=== PATIENT | female | born 1940 | race Caucasian/White ===

== ENCOUNTER 2018-06-22 14:19 | Inpatient (IN) | payer MEDICARE, MEDICAID ==
[~2018-06-22] VITALS: Ht 154.9 cm; Wt 88.0 kg
[~2018-06-22 14:19] MED LIST: AMLO10TA80 PO; ASCO500C15 PO; ASPI-986 PO; ATOR10TA PO; BLOO-1113; DOCU-138 PO; DONE10TA11 PO; ENOX100D3 SQ; INSU100C6 SUBCUT; LEVVL SQ; LISI-652 PO; MEMA10TA2 PO; OMEP20CA10 PO; ZINC220C6 PO; ZOLP5TAB2 PO
[2018-06-22] MEDS ORDERED: ONDANSETRON HCL 4MG/2ML INJ IV STA (15:41)
[2018-06-22] MEDS ORDERED: SODIUM CHLORIDE 0.9% 1,000 ML IV ONE ×2 (15:41→17:45)
[2018-06-22 15:58] LABS: BASOPHILS % 1.3 % (0.0-2.0); EOSINOPHILS % 1.3 % (0.0-5.0); HEMATOCRIT. 44.5 % (36.0-48.0); HEMOGLOBIN. 14.4 g/dL (12.0-16.0); LYMPHOCYTES % 20.3 % (20.0-50.0); MEAN CORPUSCULAR HEMOGLOBIN 29.3 pg (28.0-32.0); MEAN CORPUSCULAR VOLUME 90.8 fL (81.0-99.0); NEUTROPHILS % 69.1 % (40.0-76.0); PLATELET 322 x1000/uL (130-400); RED CELL DISTRIBUTION WIDTH 15.1 % (11.6-14.6)
[2018-06-22 16:01] LABS: CHLORIDE 100 mEq/L (98-107)
[2018-06-22 16:02] LABS: INR 1.1; PROTHROMBIN TIME 11.4 sec (9.6-11.0)
[2018-06-22 16:33] LABS: KETONES URINE TRACE (NEGATIVE); LEUKOCYTE ESTERASE URINE 1+ (NEGATIVE); NITRITE URINE NEGATIVE (NEGATIVE); OCCULT BLOOD URINE 3+ (NEGATIVE); PH URINE 5.5 (4.5-8.0); PROTEIN URINE 4+ (NEGATIVE)
[2018-06-22 16:39] LABS: CLARITY URINE CLOUDY (CLEAR); COLOR URINE DARK YELLOW (YELLOW)
[2018-06-22] MEDS ORDERED: CEFTRIAXONE 1 G PREMIX 50 ML IV NR (17:45)
[2018-06-22] MEDS ORDERED: INSULIN REGULAR (HUMULIN R) UD 100 UNITS/ML SYR SUBCUT ONE (17:45)
[2018-06-22] MEDS ORDERED: INSULIN REGULAR (HUMULIN R) 300UNITS/3ML SUBCUT NR (18:00)
[2018-06-22] MEDS ORDERED: ACETAMINOPHEN 325MG TABLET PO PRN (18:30)
[2018-06-22] MEDS ORDERED: MAGNESIUM/ALUMINUM HYDROXIDE/SIMETHICONE 30ML UDC PO PRN (18:30)
[2018-06-22] MEDS ORDERED: ONDANSETRON HCL 4MG/2ML INJ IV PRN (18:30)
[2018-06-22] MEDS ORDERED: DOCUSATE SODIUM 100MG CAPSULE PO PRN (18:30)
[2018-06-22] MEDS: CLONIDINE 0.1MG TABLET PO PRN (20:20)
[2018-06-22 23:30] VITALS: BP 183/82
[2018-06-23] VITALS (8 sets, daily range): BP systolic 106–236; BP diastolic 57–93
[2018-06-23] MEDS ORDERED: DEXTROSE 50% WATER 50ML SYRINGE IV PRN (04:00)
[2018-06-23] MEDS ORDERED: SODIUM CHLORIDE 0.9% 1,000 ML IV SCH (04:00)
[2018-06-23] MEDS: CLONIDINE 0.1MG TABLET PO PRN ×2 (04:34→15:54)
[2018-06-23 06:24] LABS: BASOPHILS % 1.2 % (0.0-2.0); EOSINOPHILS % 3.1 % (0.0-5.0); HEMATOCRIT. 42.7 % (36.0-48.0); HEMOGLOBIN. 13.7 g/dL (12.0-16.0); LYMPHOCYTES % 21.7 % (20.0-50.0); MEAN CORPUSCULAR HEMOGLOBIN 29.1 pg (28.0-32.0); MEAN CORPUSCULAR VOLUME 90.7 fL (81.0-99.0); MEAN PLATELET VOLUME 8.8 fl (7.4-10.4); MONOCYTES % 10.8 % (2.0-8.0); NEUTROPHILS % 63.2 % (40.0-76.0); PLATELET 301 x1000/uL (130-400); RED BLOOD CELL COUNT 4.71 mill/uL (4.2-5.4); RED CELL DISTRIBUTION WIDTH 14.7 % (11.6-14.6)
[2018-06-23] MEDS: BLOOD SUGAR DIAGNOSTIC STRIP TEST SCH ×4 (06:43→21:04)
[2018-06-23] MEDS: INSULIN LISPRO 100 UNITS/ML SUBCUT SCH ×4 (06:47→21:02)
[2018-06-23 06:54] LABS: CHLORIDE 100 mEq/L (98-107)
[2018-06-23] MEDS ORDERED: LEVOFLOXACIN 500MG PREMIX 100 ML IV NR (08:00)
[2018-06-23] MEDS: AMLODIPINE 10MG TABLET PO SCH (09:41)
[2018-06-23] MEDS: ENOXAPARIN 30MG/0.3ML SYR SUBCUT SCH ×2 (09:41→21:03)
[2018-06-23] MEDS: DONEPEZIL HCL 10MG TABLET PO SCH (10:38)
[2018-06-23] MEDS: LISINOPRIL 20MG TABLET PO SCH ×2 (10:38→21:03)
[2018-06-23] MEDS: SODIUM CHLORIDE 0.45% 1,000 ML IV SCH (11:22)
[2018-06-23] MEDS ORDERED: HUM100IN SQ (17:03)
[2018-06-23] MEDS: INSULIN GLARGINE UD 100 UNITS/ML SYR SUBCUT SCH (21:02)
[2018-06-23] MEDS: ATORVASTATIN CALCIUM 10MG TABLET PO SCH (21:03)
[2018-06-23] MEDS: MEMANTINE HCL 10MG TABLET PO SCH (21:03)
[2018-06-23] MEDS: HYDROCODONE/ACETAMINOPHEN 5/325MG TABLET PO PRN (21:04)
[2018-06-24] MEDS: SODIUM CHLORIDE 0.45% 1,000 ML IV SCH (00:25)
[2018-06-24] MEDS: ZOLPIDEM TARTRATE 5MG TABLET PO PRN ×2 (00:25→21:04)
[2018-06-24 04:00] VITALS: BP 145/59
[2018-06-24] MEDS: BLOOD SUGAR DIAGNOSTIC STRIP TEST SCH ×4 (07:02→20:51)
[2018-06-24 08:00] VITALS: BP 178/71
[2018-06-24] MEDS: LISINOPRIL 20MG TABLET PO SCH ×2 (10:06→21:04)
[2018-06-24] MEDS: DONEPEZIL HCL 10MG TABLET PO SCH (10:06)
[2018-06-24] MEDS: AMLODIPINE 10MG TABLET PO SCH (10:07)
[2018-06-24] MEDS: ENOXAPARIN 30MG/0.3ML SYR SUBCUT SCH (10:07)
[2018-06-24] MEDS: LEVOFLOXACIN 250MG PREMIX 50 ML IV SCH (10:08)
[2018-06-24] MEDS: MEMANTINE HCL 10MG TABLET PO SCH ×2 (10:08→21:04)
[2018-06-24] MEDS: INSULIN LISPRO 100 UNITS/ML SUBCUT SCH ×4 (10:21→21:05)
[2018-06-24] MEDS: HYDROCODONE/ACETAMINOPHEN 5/325MG TABLET PO PRN ×3 (10:22→23:39)
[2018-06-24 11:40] VITALS: BP 123/53
[2018-06-24 15:35] VITALS: BP 162/54
[2018-06-24 20:24] VITALS: BP 163/71
[2018-06-24] MEDS: ATORVASTATIN CALCIUM 10MG TABLET PO SCH (21:04)
[2018-06-24] MEDS: INSULIN GLARGINE UD 100 UNITS/ML SYR SUBCUT SCH (21:06)
[2018-06-25] VITALS: BP 155/47
[2018-06-25 04:00] VITALS: BP 161/58
[2018-06-25] MEDS: HYDROCODONE/ACETAMINOPHEN 5/325MG TABLET PO PRN (04:39)
[2018-06-25] MEDS: CLONIDINE 0.1MG TABLET PO PRN ×2 (04:39→16:33)
[2018-06-25] MEDS: BLOOD SUGAR DIAGNOSTIC STRIP TEST SCH ×2 (06:33→12:33)
[2018-06-25 08:00] VITALS: BP 95/53
[2018-06-25] MEDS: INSULIN LISPRO 100 UNITS/ML SUBCUT SCH ×2 (08:45→12:48)
[2018-06-25] MEDS ORDERED: ENOXAPARIN 40MG/0.4ML SYR SUBCUT SCH (09:00)
[2018-06-25] MEDS: AMLODIPINE 10MG TABLET PO SCH (09:00)
[2018-06-25] MEDS: LISINOPRIL 20MG TABLET PO SCH (09:00)
[2018-06-25] MEDS: DONEPEZIL HCL 10MG TABLET PO SCH (09:14)
[2018-06-25] MEDS: MEMANTINE HCL 10MG TABLET PO SCH (09:17)
[2018-06-25] MEDS: LEVOFLOXACIN 250MG PREMIX 50 ML IV SCH (09:18)
[2018-06-25 12:00] VITALS: BP 143/58
[2018-06-25 12:57] VITALS: BP 95/53
[2018-06-25 17:10] VITALS: BP 160/56
[2018-06-26] MEDS ORDERED: LEVOFLOXACIN 250MG TABLET PO SCH (11:00)
== END 2018-06-25 17:51 | DRG 690 ==
LOC: ER 16:35 → 6WST 17:44 → SUPCPDRO 18:23 → ENRESERV 20:13
PROVIDERS: ADMIT Hospitalist; ATTEND Hospitalist
DX: N39.0 Urinary tract infection, site not specified (principal); E11.65 Type 2 diabetes mellitus with hyperglycemia; I10 Essential (primary) hypertension; F03.90 Unspecified dementia, unspecified severity, without behavioral disturbance, psychotic disturbance, mood disturbance, and anxiety; Z86.73 Personal history of transient ischemic attack (TIA), and cerebral infarction without residual deficits; Z90.13 Acquired absence of bilateral breasts and nipples; Z85.3 Personal history of malignant neoplasm of breast
CPT/HCPCS: 36415; 71045; 74177; 82962; 83605; 84145; 84484; 87077; 87186; 87804; 93005; 93970; 96365; 96375; 97162; 97166; 99285; J0696; J1650; J1815; J1956; J2405; J7030; Q9967

== ENCOUNTER 2018-07-09 18:43 | Inpatient (IN) | payer MEDICARE, MEDICAID ==
[~2018-07-09] VITALS: Ht 165.1 cm; Wt 88.5 kg
[~2018-07-09 18:43] MED LIST changes: +HUM100IN SQ
[2018-07-09] MEDS ORDERED: SODIUM CHLORIDE 0.9% 1,000 ML IV ONE (19:25)
[2018-07-09] MEDS ORDERED: ONDANSETRON HCL 4MG/2ML INJ IV STA (19:25)
[2018-07-09] MEDS ORDERED: FAMOTIDINE 20MG/2ML VIAL IV NR (19:30)
[2018-07-09 20:30] LABS: CHLORIDE 98 mEq/L (98-107)
[2018-07-09 20:32] LABS: BASOPHILS % 1.1 % (0.0-2.0); EOSINOPHILS % 6.4 % (0.0-5.0); HEMATOCRIT. 40.2 % (36.0-48.0); HEMOGLOBIN. 12.9 g/dL (12.0-16.0); LYMPHOCYTES % 28.6 % (20.0-50.0); MEAN CORPUSCULAR HEMOGLOBIN 29.5 pg (28.0-32.0); MEAN CORPUSCULAR VOLUME 91.7 fL (81.0-99.0); MEAN PLATELET VOLUME 9.6 fl (7.4-10.4); MONOCYTES % 8.1 % (2.0-8.0); NEUTROPHILS % 55.8 % (40.0-76.0); PLATELET 252 x1000/uL (130-400); RED BLOOD CELL COUNT 4.39 mill/uL (4.2-5.4); RED CELL DISTRIBUTION WIDTH 14.8 % (11.6-14.6)
[2018-07-09 20:36] LABS: INR 0.9; PARTIAL THROMBOPLASTIN TIME 20.8 sec (23.4-31.0); PROTHROMBIN TIME 9.4 sec (9.6-11.0)
[2018-07-09] MEDS ORDERED: CLONIDINE 0.2MG TABLET PO ONE (22:00)
[2018-07-09 22:31] LABS: CLARITY URINE CLEAR (CLEAR); COLOR URINE YELLOW (YELLOW); KETONES URINE NEGATIVE (NEGATIVE); LEUKOCYTE ESTERASE URINE TRACE (NEGATIVE); NITRITE URINE NEGATIVE (NEGATIVE); OCCULT BLOOD URINE TRACE (NEGATIVE); PROTEIN URINE NEGATIVE (NEGATIVE); SPECIFIC GRAVITY URINE 1.017 (1.005-1.030); UROBILINOGEN URINE 0.2 E.U./dL (0.2-1.0)
[2018-07-09] MEDS ORDERED: HYDROCODONE/ACETAMINOPHEN 5/325MG TABLET PO ONE (23:30)
[2018-07-10] MEDS ORDERED: SODIUM CHLORIDE 0.9% 1,000 ML IV ONE (00:30)
[2018-07-10 05:00] VITALS: BP 151/68
[2018-07-10 05:30] VITALS: BP 151/68
[2018-07-10] MEDS ORDERED: DOCUSATE SODIUM 100MG CAPSULE PO PRN (06:30)
[2018-07-10] MEDS ORDERED: NA PHOS,M-B/NA PHOS,DI-BA ENEMA 118ML PR PRN (06:30)
[2018-07-10] MEDS ORDERED: DEXTROSE 50% WATER 50ML SYRINGE IV PRN (06:30)
[2018-07-10] MEDS: METOPROLOL TARTRATE 25MG TABLET PO SCH ×2 (07:04→20:21)
[2018-07-10] MEDS: BLOOD SUGAR DIAGNOSTIC STRIP TEST SCH ×4 (07:04→20:22)
[2018-07-10] MEDS: INSULIN LISPRO 100 UNITS/ML SUBCUT SCH ×4 (07:05→20:28)
[2018-07-10] MEDS ORDERED: ASPI-964 PO (07:57)
[2018-07-10] MEDS ORDERED: MOM PO (07:57)
[2018-07-10 08:00] VITALS: BP 149/57
[2018-07-10] MEDS ORDERED: LEVOFLOXACIN 500MG PREMIX 100 ML IV SCH (08:00)
[2018-07-10] MEDS: AMLODIPINE 10MG TABLET PO SCH (08:33)
[2018-07-10] MEDS: MAGNESIUM/ALUMINUM HYDROXIDE/SIMETHICONE 30ML UDC PO PRN (08:35)
[2018-07-10] MEDS: INSULIN GLARGINE UD 100 UNITS/ML SYR SUBCUT SCH (10:07)
[2018-07-10] MEDS: DONEPEZIL HCL 10MG TABLET PO SCH (11:44)
[2018-07-10] MEDS: LISINOPRIL 20MG TABLET PO SCH (11:44)
[2018-07-10 12:00] VITALS: BP 154/63
[2018-07-10 12:26] LABS: TOTAL IRON BINDING CAPACITY 262 ug/dL (250-450)
[2018-07-10] MEDS: ACETAMINOPHEN 325MG TABLET PO PRN (15:51)
[2018-07-10 16:00] VITALS: BP 156/62
[2018-07-10] MEDS: HYDROCODONE/ACETAMINOPHEN 5/325MG TABLET PO PRN ×2 (18:27→22:49)
[2018-07-10 20:00] VITALS: BP 149/57
[2018-07-10] MEDS: MEMANTINE HCL 10MG TABLET PO SCH (20:21)
[2018-07-10] MEDS: GUAIFENESIN 200MG/10ML SUGAR FREE UDC PO PRN (20:22)
[2018-07-11] VITALS (7 sets, daily range): BP systolic 148–172; BP diastolic 44–78
[2018-07-11] MEDS: HYDROCODONE/ACETAMINOPHEN 5/325MG TABLET PO PRN ×3 (05:04→22:09)
[2018-07-11] MEDS: BLOOD SUGAR DIAGNOSTIC STRIP TEST SCH ×4 (06:25→22:07)
[2018-07-11] MEDS: INSULIN LISPRO 100 UNITS/ML SUBCUT SCH ×4 (06:25→22:08)
[2018-07-11 06:26] LABS: BASOPHILS % 0.8 % (0.0-2.0); EOSINOPHILS % 6.8 % (0.0-5.0); HEMATOCRIT. 37.6 % (36.0-48.0); HEMOGLOBIN. 12.1 g/dL (12.0-16.0); LYMPHOCYTES % 36.7 % (20.0-50.0); MEAN CORPUSCULAR HEMOGLOBIN 29.3 pg (28.0-32.0); MEAN CORPUSCULAR VOLUME 91.1 fL (81.0-99.0); MEAN PLATELET VOLUME 8.9 fl (7.4-10.4); MONOCYTES % 8.2 % (2.0-8.0); NEUTROPHILS % 47.5 % (40.0-76.0); PLATELET 250 x1000/uL (130-400); RED BLOOD CELL COUNT 4.12 mill/uL (4.2-5.4); RED CELL DISTRIBUTION WIDTH 14.8 % (11.6-14.6)
[2018-07-11 06:32] LABS: CHLORIDE 102 mEq/L (98-107)
[2018-07-11] MEDS: ACETAMINOPHEN 325MG TABLET PO PRN (08:46)
[2018-07-11] MEDS: MEMANTINE HCL 10MG TABLET PO SCH ×2 (08:46→22:08)
[2018-07-11] MEDS: LISINOPRIL 20MG TABLET PO SCH (08:46)
[2018-07-11] MEDS: AMLODIPINE 10MG TABLET PO SCH (08:46)
[2018-07-11] MEDS: DONEPEZIL HCL 10MG TABLET PO SCH (08:46)
[2018-07-11] MEDS: METOPROLOL TARTRATE 25MG TABLET PO SCH ×2 (08:46→22:09)
[2018-07-11] MEDS: LEVOFLOXACIN 250MG PREMIX 50 ML IV SCH (08:47)
[2018-07-11] MEDS: INSULIN GLARGINE UD 100 UNITS/ML SYR SUBCUT SCH (10:32)
[2018-07-11] MEDS: CLONIDINE 0.1MG TABLET PO PRN (16:44)
[2018-07-11] MEDS ORDERED: BISACODYL 10MG SUPP PR NR (16:45)
[2018-07-11] MEDS ORDERED: SORBITOL 70% SOLN 30ML PO NR ×2 (18:00→22:00)
[2018-07-11] MEDS: GUAIFENESIN 200MG/10ML SUGAR FREE UDC PO PRN (22:07)
[2018-07-11] MEDS: ONDANSETRON HCL 4MG/2ML INJ IV PRN (22:21)
[2018-07-12] VITALS (25 sets, daily range): BP systolic 109–188; BP diastolic 46–112
[2018-07-12] MEDS: CLONIDINE 0.1MG TABLET PO PRN (04:17)
[2018-07-12] MEDS: HYDROCODONE/ACETAMINOPHEN 5/325MG TABLET PO PRN ×3 (05:50→20:28)
[2018-07-12] MEDS ORDERED: SORBITOL 70% SOLN 30ML PO NR (06:00)
[2018-07-12] MEDS: INSULIN LISPRO 100 UNITS/ML SUBCUT SCH ×4 (07:15→20:37)
[2018-07-12] MEDS: BLOOD SUGAR DIAGNOSTIC STRIP TEST SCH ×4 (07:42→20:37)
[2018-07-12] MEDS ORDERED: NA PHOS,M-B/NA PHOS,DI-BA ENEMA 118ML PR NR (09:00)
[2018-07-12] MEDS: DONEPEZIL HCL 10MG TABLET PO SCH (09:51)
[2018-07-12] MEDS: AMLODIPINE 10MG TABLET PO SCH (09:52)
[2018-07-12] MEDS: LEVOFLOXACIN 250MG PREMIX 50 ML IV SCH (09:52)
[2018-07-12] MEDS: MEMANTINE HCL 10MG TABLET PO SCH (09:52)
[2018-07-12] MEDS: LISINOPRIL 20MG TABLET PO SCH (09:52)
[2018-07-12] MEDS: METOPROLOL TARTRATE 25MG TABLET PO SCH (09:53)
[2018-07-12] MEDS: INSULIN GLARGINE UD 100 UNITS/ML SYR SUBCUT SCH ×2 (10:00→12:29)
[2018-07-12] MEDS: ASPIRIN 81MG EC TABLET PO SCH (12:00)
[2018-07-12 13:13] LABS: CHLORIDE 109 mEq/L (98-107)
[2018-07-12] MEDS ORDERED: SODIUM POLYSTYRENE SULFONATE 15 G/60 ML BOT PO NR (14:30)
[2018-07-12] MEDS ORDERED: DOPAMINE 400MG/250ML PREMIX 250 ML IV PRN (15:45)
[2018-07-12] MEDS ORDERED: LISINOPRIL 20MG TABLET PO SCH (21:45)
[2018-07-13] VITALS (52 sets, daily range): BP systolic 88–180; BP diastolic 43–125
[2018-07-13] MEDS: HYDROCODONE/ACETAMINOPHEN 5/325MG TABLET PO PRN ×5 (03:22→22:47)
[2018-07-13] MEDS: HYDRALAZINE 20MG/ML VIAL IV PRN (03:29)
[2018-07-13] MEDS: GUAIFENESIN 200MG/10ML SUGAR FREE UDC PO PRN (04:00)
[2018-07-13 05:35] LABS: BASOPHILS % 0.6 % (0.0-2.0); EOSINOPHILS % 3.7 % (0.0-5.0); HEMATOCRIT. 40.2 % (36.0-48.0); HEMOGLOBIN. 12.8 g/dL (12.0-16.0); LYMPHOCYTES % 21.3 % (20.0-50.0); MEAN CORPUSCULAR VOLUME 91.3 fL (81.0-99.0); MEAN PLATELET VOLUME 9.1 fl (7.4-10.4); NEUTROPHILS % 67.4 % (40.0-76.0); PLATELET 239 x1000/uL (130-400); RED BLOOD CELL COUNT 4.41 mill/uL (4.2-5.4); RED CELL DISTRIBUTION WIDTH 14.9 % (11.6-14.6)
[2018-07-13 05:49] LABS: CHLORIDE 104 mEq/L (98-107)
[2018-07-13] MEDS: BLOOD SUGAR DIAGNOSTIC STRIP TEST SCH ×4 (07:50→20:53)
[2018-07-13] MEDS: LEVOFLOXACIN 250MG PREMIX 50 ML IV SCH (08:55)
[2018-07-13] MEDS: ASPIRIN 81MG EC TABLET PO SCH (08:55)
[2018-07-13] MEDS: LISINOPRIL 20MG TABLET PO SCH ×2 (08:56→20:53)
[2018-07-13] MEDS: AMLODIPINE 10MG TABLET PO SCH (08:56)
[2018-07-13] MEDS: ONDANSETRON HCL 4MG/2ML INJ IV PRN (08:56)
[2018-07-13] MEDS: INSULIN LISPRO 100 UNITS/ML SUBCUT SCH ×4 (08:57→20:54)
[2018-07-13] MEDS: INSULIN GLARGINE UD 100 UNITS/ML SYR SUBCUT SCH (10:01)
[2018-07-13] MEDS: FAMOTIDINE 20MG/2ML VIAL IV SCH (10:16)
[2018-07-13] MEDS: ENOXAPARIN 60MG/0.6ML SYR SUBCUT SCH ×2 (11:36→20:53)
[2018-07-14] VITALS (41 sets, daily range): BP systolic 81–171; BP diastolic 40–80
[2018-07-14] MEDS: HYDROCODONE/ACETAMINOPHEN 5/325MG TABLET PO PRN ×3 (04:55→17:19)
[2018-07-14 05:32] LABS: BASOPHILS % 1.1 % (0.0-2.0); EOSINOPHILS % 4.9 % (0.0-5.0); HEMATOCRIT. 37.3 % (36.0-48.0); LYMPHOCYTES % 33.5 % (20.0-50.0); MEAN CORPUSCULAR HEMOGLOBIN 29.4 pg (28.0-32.0); MEAN CORPUSCULAR VOLUME 91.5 fL (81.0-99.0); MEAN PLATELET VOLUME 9.2 fl (7.4-10.4); MONOCYTES % 6.9 % (2.0-8.0); NEUTROPHILS % 53.6 % (40.0-76.0); PLATELET 210 x1000/uL (130-400); RED BLOOD CELL COUNT 4.08 mill/uL (4.2-5.4); RED CELL DISTRIBUTION WIDTH 14.8 % (11.6-14.6)
[2018-07-14] MEDS: BLOOD SUGAR DIAGNOSTIC STRIP TEST SCH ×4 (07:50→21:39)
[2018-07-14] MEDS: LEVOFLOXACIN 250MG PREMIX 50 ML IV SCH (08:49)
[2018-07-14] MEDS: FAMOTIDINE 20MG/2ML VIAL IV SCH (08:49)
[2018-07-14] MEDS: AMLODIPINE 10MG TABLET PO SCH (08:50)
[2018-07-14] MEDS: ASPIRIN 81MG EC TABLET PO SCH (08:50)
[2018-07-14] MEDS: LISINOPRIL 20MG TABLET PO SCH ×2 (08:50→21:43)
[2018-07-14] MEDS: ENOXAPARIN 60MG/0.6ML SYR SUBCUT SCH ×2 (08:50→21:44)
[2018-07-14] MEDS: INSULIN LISPRO 100 UNITS/ML SUBCUT SCH ×4 (08:51→21:42)
[2018-07-14] MEDS: INSULIN GLARGINE UD 100 UNITS/ML SYR SUBCUT SCH (09:17)
[2018-07-14] MEDS: NIFEDIPINE XL 60MG TAB PO SCH (11:39)
[2018-07-14] MEDS ORDERED: IPRATROPIUM/ALBUTEROL 0.5-3(2.5)MG/3ML NEB HHN PRN (13:30)
[2018-07-14] MEDS: KETOROLAC 30MG/ML VIAL IV PRN (21:47)
[2018-07-15] VITALS (11 sets, daily range): BP systolic 102–166; BP diastolic 53–86
[2018-07-15] MEDS: HYDROCODONE/ACETAMINOPHEN 5/325MG TABLET PO PRN (00:03)
[2018-07-15] MEDS: ONDANSETRON HCL 4MG/2ML INJ IV PRN ×3 (02:21→17:22)
[2018-07-15] MEDS: KETOROLAC 30MG/ML VIAL IV PRN (04:43)
[2018-07-15] MEDS: BLOOD SUGAR DIAGNOSTIC STRIP TEST SCH ×3 (07:06→16:50)
[2018-07-15] MEDS: LEVOFLOXACIN 250MG PREMIX 50 ML IV SCH (08:00)
[2018-07-15] MEDS: ASPIRIN 81MG EC TABLET PO SCH (09:00)
[2018-07-15] MEDS: ENOXAPARIN 60MG/0.6ML SYR SUBCUT SCH (09:00)
[2018-07-15] MEDS: LISINOPRIL 20MG TABLET PO SCH (09:57)
[2018-07-15] MEDS: NIFEDIPINE XL 60MG TAB PO SCH (10:00)
[2018-07-15] MEDS ORDERED: HYDROCODONE/ACETAMINOPHEN 5/325MG TABLET PO PRN ×2 (10:00→13:15)
[2018-07-15] MEDS: INSULIN GLARGINE UD 100 UNITS/ML SYR SUBCUT SCH (10:11)
[2018-07-15] MEDS: INSULIN LISPRO 100 UNITS/ML SUBCUT SCH ×3 (10:13→18:18)
[2018-07-15] MEDS: MAGNESIUM/ALUMINUM HYDROXIDE/SIMETHICONE 30ML UDC PO PRN (10:14)
[2018-07-15] MEDS: HYDRALAZINE 20MG/ML VIAL IV PRN (10:14)
[2018-07-15] MEDS: FAMOTIDINE 20MG/2ML VIAL IV SCH (10:14)
[2018-07-15] MEDS ORDERED: METOCLOPRAMIDE HCL 10MG/2ML VIAL IV ONE (10:15)
[2018-07-15] MEDS ORDERED: BISACODYL 5MG TABLET PO ONE (10:15)
[2018-07-15] MEDS ORDERED: SORBITOL 70% SOLN 30ML PO NR ×2 (10:15→14:15)
[2018-07-15] MEDS ORDERED: SORBITOL 70% SOLN 30ML PO SCH ×2 (10:45→15:00)
[2018-07-15 11:45] LABS: BASOPHILS % 0.7 % (0.0-2.0); EOSINOPHILS % 4.1 % (0.0-5.0); HEMATOCRIT. 36.4 % (36.0-48.0); HEMOGLOBIN. 11.7 g/dL (12.0-16.0); LYMPHOCYTES % 19.5 % (20.0-50.0); MEAN CORPUSCULAR HEMOGLOBIN 29.2 pg (28.0-32.0); MEAN CORPUSCULAR VOLUME 90.6 fL (81.0-99.0); MEAN PLATELET VOLUME 8.7 fl (7.4-10.4); MONOCYTES % 6.1 % (2.0-8.0); NEUTROPHILS % 69.6 % (40.0-76.0); PLATELET 223 x1000/uL (130-400); RED BLOOD CELL COUNT 4.02 mill/uL (4.2-5.4); RED CELL DISTRIBUTION WIDTH 14.7 % (11.6-14.6)
[2018-07-15 11:52] LABS: PROTHROMBIN TIME 10.1 sec (9.6-11.0)
[2018-07-15] MEDS ORDERED: METOCLOPRAMIDE HCL 10MG/2ML VIAL IV NR ×3 (13:09→21:00)
[2018-07-15] MEDS ORDERED: APIXABAN 5 MG TABLET PO SCH (13:15)
[2018-07-15] MEDS ORDERED: FAMOTIDINE 20MG TABLET PO SCH (13:30)
[2018-07-15] MEDS ORDERED: BISACODYL 5MG TABLET PO NR ×3 (14:15→21:00)
[2018-07-15] MEDS ORDERED: SODIUM CHL 0.9% + KCL 20MEQ/L 1,000 ML IV SCH (14:30)
[2018-07-15] MEDS ORDERED: MAGNESIUM CITRATE 300ML SOLUTION PO NR ×2 (16:30→21:30)
[2018-07-15] MEDS: GUAIFENESIN 200MG/10ML SUGAR FREE UDC PO PRN (17:20)
[2018-07-22] MEDS ORDERED: APIXABAN 5 MG TABLET PO SCH (09:00)
== END 2018-07-15 18:50 | DRG 377 ==
LOC: ER 18:43 → 5WST 23:57 → EDBEDREQTM 23:59 → EDBEDREQ 23:59 → ENRESERV 07-10 02:36 → CVICU 07-12 14:08 → 3WST 07-14 17:50
PROVIDERS: ADMIT Hospitalist; ATTEND Hospitalist
DX: K92.2 Gastrointestinal hemorrhage, unspecified (principal); I46.9 Cardiac arrest, cause unspecified; I82.221 Chronic embolism and thrombosis of inferior vena cava; D68.59 Other primary thrombophilia; I16.1 Hypertensive emergency; I82.529 Chronic embolism and thrombosis of unspecified iliac vein; N39.0 Urinary tract infection, site not specified; I82.403 Acute embolism and thrombosis of unspecified deep veins of lower extremity, bilateral; Z96.651 Presence of right artificial knee joint; R00.1 Bradycardia, unspecified; F03.90 Unspecified dementia, unspecified severity, without behavioral disturbance, psychotic disturbance, mood disturbance, and anxiety; E11.65 Type 2 diabetes mellitus with hyperglycemia; E87.5 Hyperkalemia; I10 Essential (primary) hypertension; I44.1 Atrioventricular block, second degree; K80.20 Calculus of gallbladder without cholecystitis without obstruction; E78.5 Hyperlipidemia, unspecified; I27.20 Pulmonary hypertension, unspecified; K44.9 Diaphragmatic hernia without obstruction or gangrene; K59.00 Constipation, unspecified; K76.0 Fatty (change of) liver, not elsewhere classified; Z79.4 Long term (current) use of insulin; Z86.73 Personal history of transient ischemic attack (TIA), and cerebral infarction without residual deficits; Z90.13 Acquired absence of bilateral breasts and nipples; Z79.84 Long term (current) use of oral hypoglycemic drugs; T43.8X5A Adverse effect of other psychotropic drugs, initial encounter
CPT/HCPCS: 36415; 71045; 74176; 78580; 80048; 82270; 82378; 82728; 82962; 83036; 83540; 83550; 83735; 83880; 84132; 84443; 84484; 86304; 86850; 86900; 93005; 93306; 93970; 99285; C1893; J0360; J1650; J1815; J1885; J1956; J2405; J2765; J3480; J3490; J7030; J7050